=== PATIENT | female | born 1990 | race Caucasian/White ===

== ENCOUNTER 2017-01-22 19:01 | Emergency (ER) | payer BC ==
[~2017-01-22] VITALS: Ht 175.3 cm; Wt 95.5 kg
[2017-01-22 19:04] VITALS: BP 156/95; TEMP 99.2
[2017-01-22] MEDS ORDERED: NEXPLANON68 MG ID (19:08)
[2017-01-22] MEDS ORDERED: DOXYCYCLINE 10100 MG PO (20:11)
[2017-01-22 20:25] VITALS: PULSE 98
== END 2017-01-22 20:25 | disposition home or self-care (01) ==
LOC: COL.ER 19:01
DX: S51.812A Laceration without foreign body of left forearm, initial encounter (principal); S51.832A Puncture wound without foreign body of left forearm, initial encounter; F17.210 Nicotine dependence, cigarettes, uncomplicated; W54.0XXA Bitten by dog, initial encounter

== ENCOUNTER 2019-04-28 01:12 | Emergency (ER) | payer OTHER ==
[~2019-04-28] VITALS: Ht 175.3 cm; Wt 112.7 kg
[~2019-04-28 01:12] MED LIST: DOXYCYCLINE 10100 MG PO; NEXPLANON68 MG ID
[2019-04-28 01:33] VITALS: TEMP 98.7
[2019-04-28 04:08] LABS: COLLECTION METHOD CLEAN CATCH
[2019-04-28 04:11] LABS: BASO % 0.4 % (0.0-2.0); EOS # 0.2 (0.0-0.7); EOS % 1.9 % (0-4.0); GRAN # 4.8 (1.4-6.5); GRAN % 61.8 % (42.2-75.2); LYMPH # 2.2 (1.2-3.4); LYMPH % 28.6 % (20.0-51.0); MEAN CELL VOLUME 92 fl (80.0-100.0); MEAN CORPUSCULAR HEMOGLOBIN 30 pg (27.0-31.0); MEAN CORPUSCULAR HGB CONC 33 g/dl (33.0-37.0); MEAN PLATELET VOLUME 10.6 fl (7.4-10.4); MONO # 0.5 (0.1-0.6); PLATELET COUNT 245 K/mm3 (130-400); RED BLOOD COUNT 4.33 M/mm3 (4.10-5.30); REDCELL DISTRIBUTION WIDTH-CV 11.9 % (11.5-14.5)
[2019-04-28 04:14] LABS: PH 5 (5-8); SQUAMOUS EPITHELIAL 0-2 /hpf; URINE APPEARANCE Clear; URINE BACTERIA None Seen /hpf; URINE BILIRUBIN Negative (NEGATIVE); URINE BLOOD Negative (NEGATIVE); URINE COLOR Straw; URINE GLUCOSE Negative (NEGATIVE); URINE KETONE Negative (NEGATIVE); URINE LEUKOCYTE ESTERASE Negative (NEGATIVE); URINE NITRATE Negative (NEGATIVE); URINE PROTEIN(semi-quant) Negative (NEGATIVE); URINE RBC 0-2 /hpf; URINE UROBILINOGEN Negative (NEGATIVE)
[2019-04-28 04:20] LABS: CALCIUM 9.1 mg/dL (8.4-10.2); CREATININE, serum 0.59 (0.52-1.25); POTASSIUM 3.9 mmol/L (3.4-5.0)
[2019-04-28 05:43] VITALS: BP 130/75; PULSE 71
== END 2019-04-28 05:48 | disposition home or self-care (01) ==
LOC: COL.ER 01:12
PROVIDERS: Physician Assistant
DX: G43.909 Migraine, unspecified, not intractable, without status migrainosus (principal); F17.210 Nicotine dependence, cigarettes, uncomplicated
CPT/HCPCS: J1200; J1885; J2765; J7030

== ENCOUNTER → 2020-05-08 | Outpatient (CLI) | payer OTHER ==
[2020-05-08 07:21] LABS: HEMOGLOBIN 12.2 g/dl (12.5-16.0); MEAN CELL VOLUME 91 fl (80.0-100.0); MEAN CORPUSCULAR HEMOGLOBIN 30 pg (27.0-31.0); MEAN CORPUSCULAR HGB CONC 33 g/dl (33.0-37.0); MEAN PLATELET VOLUME 10.7 fl (7.4-10.4); PLATELET COUNT 257 K/mm3 (130-400); RED BLOOD COUNT 4.06 M/mm3 (4.10-5.30); REDCELL DISTRIBUTION WIDTH-CV 12.6 % (11.5-14.5)
[2020-05-08 07:54] LABS: ALBUMIN 4.3 gm/dL (3.5-5.0); BILIRUBIN,TOTAL 1.1 mg/dL (0.0-1.0); CALCIUM 8.9 mg/dL (8.4-10.2); CHOLESTEROL RISK RATIO 4.6; CREATININE, serum 0.7 (0.52-1.25); POTASSIUM 3.8 mmol/L (3.4-5.0); TOTAL PROTEIN 7.7 gm/dL (6.4-8.2)
[2020-05-08 08:25] LABS: THYROID STIMULATING HORMONE 2.35 uIU/mL (0.465-4.680)
== END ==
LOC: COL.LAB 07:03
PROVIDERS: Family Medicine
DX: Z13.220 Encounter for screening for lipoid disorders (principal); Z00.00 Encounter for general adult medical examination without abnormal findings; Z13.0 Encounter for screening for diseases of the blood and blood-forming organs and certain disorders involving the immune mechanism; Z13.1 Encounter for screening for diabetes mellitus; Z13.29 Encounter for screening for other suspected endocrine disorder

== ENCOUNTER → 2021-01-31 | Outpatient (REF) | LOC: COL.LAB 10:20 | DX: Z20.822 Contact with and (suspected) exposure to COVID-19 (principal) ==